=== PATIENT | male | born 1990 | race Two or more races ===

== ENCOUNTER 2022-09-17 11:35 | Emergency (ER) | payer OTHER ==
[~2022-09-17] VITALS: Ht 182.9 cm; Wt 95.7 kg
== END 2022-09-17 14:43 | disposition left against medical advice (07) ==
LOC: ER 11:35
DX: S89.91XA Unspecified injury of right lower leg, initial encounter (principal); W07.XXXA Fall from chair, initial encounter; Y93.9 Activity, unspecified; Y92.019 Unspecified place in single-family (private) house as the place of occurrence of the external cause

== ENCOUNTER 2022-10-04 09:31 | Outpatient (CLI) | payer OTHER | END 2022-10-04 09:40 | disposition home or self-care (01) | LOC: MRI 09:31 | PROVIDERS: ATTEND Family Medicine | DX: S89.91XA Unspecified injury of right lower leg, initial encounter (principal) | CPT/HCPCS: 73721 ==